=== PATIENT | female | born 1985 | race Caucasian/White ===

== ENCOUNTER 2021-08-04 04:19 | Emergency (ER) | payer OTHER ==
[~2021-08-04] VITALS: Ht 170.2 cm; Wt 104.0 kg
[2021-08-04] MEDS ORDERED: KETOROLAC 15 MG/ML VIAL. IVP ONE (05:45)
[2021-08-04] MEDS ORDERED: diphenhydrAMINE 50 MG/ML VIAL IVP ONE (05:45)
[2021-08-04] MEDS ORDERED: METOCLOPRAMIDE HCL 10 MG/2 ML VIAL. IVP ONE (05:45)
[2021-08-04] MEDS ORDERED: IV NORMAL SALINE 1,000ML 1,000 ML IV ONE (05:45)
[2021-08-04] MEDS ORDERED: DEXAMETHASONE SOD PHOS 10 MG/ML VIAL. IVP ONE (05:45)
--- NOTE | 2021-08-04 06:09 | PHYS DOC ---
Past History Past Medical History: Diabetes Additional Past Medical Histor: COVID 07/28/21 Past Surgical History: Appendectomy Smoking: Non-smoker Alcohol Use: None Drug Use: None General Adult EDM: Chief Complaint: HEADACHE HPI: HPI: 35-year-old female presents with report of headache that is been ongoing for the past 2 days. Patient also reports some right-sided neck pain. Patient does report history of 6 days ago. Patient was induced secondary to elevated blood pressure. Patient also recently diagnosed with COVID-19 on 07/05. Denies trauma. Denies fever or chills. Review of Systems: Review of Systems: Constitutional: Denies fever or chills Eyes: Denies redness or eye pain HENT: Denies nasal congestion or sore throat Respiratory: Denies cough or shortness of breath Cardiovascular: Denies chest pain or palpitations GI: Denies abdominal pain, nausea, or vomiting : Denies dysuria or hematuria Musculoskeletal: Denies back pain; reports right-sided neck pain Integument: Denies rash or skin lesions Neurologic: Reports headache; focal weakness or sensory changes Complete systems were reviewed and found to be within normal limits, except as documented in this note. Current Medications: Current Meds: Current Medications Medications (Trade) Dose Ordered Sig/Jude Start Time Stop Time Status Last Admin Dose Admin Dexamethasone Sodium Phosphate (Decadron) 10 mg 1X ONCE 08/04/21 05:45 08/04/21 05:46 UNV 08/04/21 05:48 10 MG Diphenhydramine HCl (Benadryl) 25 mg 1X ONCE 08/04/21 05:45 08/04/21 05:46 UNV 08/04/21 05:47 25 MG Ketorolac Tromethamine (Toradol 15mg Vial) 15 mg 1X ONCE 08/04/21 05:45 08/04/21 05:46 UNV 08/04/21 05:49 15 MG Metoclopramide HCl (Reglan Vial) 10 mg 1X ONCE 08/04/21 05:45 08/04/21 05:46 UNV 08/04/21 05:49 10 MG Sodium Chloride 1,000 ml @ 1,000 mls/hr 1X ONCE 08/04/21 05:45 08/04/21 06:44 UNV 08/04/21 05:47 1,000 MLS/HR Physical Exam: PE: Constitutional: Well developed, well nourished, uncomfortable, non-toxic appearance HENT: Normocephalic, atraumatic Eyes: Conjunctiva normal, no discharge, photophobia Neck: Normal range of motion, no midline tenderness, right paraspinal tenderness noted, supple Lungs & Thorax: No respiratory distress, equal chest rise and fall Abdomen: Soft, no tenderness Skin: Warm, dry, no erythema, no rash Extremities: No tenderness, ROM intact, no edema Neurologic: Alert and oriented X 3, no focal deficits noted Psychologic: Affect normal, judgment normal Current Patient Data: Vital Signs: Vital Signs Date Time Temp Pulse Resp B/P (MAP) Pulse Ox O2 Delivery O2 Flow Rate FiO2 08/04/21 05:43 69 22 190/97 (128) 98 Room Air 08/04/21 04:38 98.5 EKG: EKG: [] Radiology/Procedures: Radiology/Procedures: [] Heart Score: C/O Chest Pain: N/A Course & Med Decision Making: Course & Med Decision Making Patient presents with report of headache and right-sided neck discomfort x2 days. No history of trauma. History of COVID-19 diagnosis 07/28/2021. Patient also delivering 6 days ago. Patient is afebrile. No meningeal signs noted. Symptomatic treatment provided with headache cocktail with interval improvement. Prescriptions for continued headache medication as well as muscle relaxer provided for symptomatic treatment. Patient stable for discharge with outpatient follow-up with PCP/neurologist. Neurology referral provided. Discussed findings and plan with patient, who acknowledges understanding and agreement. Hussain Disclaimer: Hussain Disclaimer: This electronic medical record was generated, in whole or in part, using a voice recognition dictation system. Departure Departure: Impression: Primary Impression: Headache Qualified Codes: R51.9 - Headache, unspecified Additional Impression: Neck pain Disposition: HOME / SELF CARE / HOMELESS Condition: STABLE Referrals: SUSHMA AL MD (PCP) JENNY WU MD Patient Instructions: Headache, FAQs, Muscle Strain, [id number] Additional Instructions: Ice area of discomfort 20 minutes on and leave off next 20 minutes. Use [id number] ibuprofen or naproxen in addition to prescribed medications. Scripts Orphenadrine Citrate (ORPHENADRINE CITRATE) 100 Mg Tablet.er 1 TAB PO BID PRN for MUSCLE PAIN, #14 TAB 0 Refills Prov: DIMPLE PAPPAS DO 08/04/21 Butalb/Acetaminophen/Caffeine ([id number] [id number]) 1 Each Tablet 1 EACH PO Q6HRS PRN for HEADACHE, #14 TAB Prov: DIMPLE PAPPAS DO 08/04/21 DIMPLE PAPPAS DO Aug 04, 2021 06:09
[2021-08-04] MEDS ORDERED: BUTA1TAB23 PO (06:17)
[2021-08-04] MEDS ORDERED: ORPH-16 PO (06:17)
[2021-08-04] MEDS ORDERED: ORPHENADRINE CITRATE 60 MG/2 ML VIAL. IV ONE (07:00)
[2021-08-04] MEDS ORDERED: hydrALAZINE 20 MG/ML VIAL. IV ONE (08:00)
[2021-08-04 09:19] LABS: COLOR,URINE STRAW
[2021-08-04 09:20] LABS: BACTERIA,URINE 0 /HPF (0-FEW); BILIRUBIN,URINE NEG (NEG); CLARITY,URINE CLEAR; GLUCOSE,URINE NEG (NEG); NITRITE,URINE NEG (NEG); RBC,URINE OCC /HPF (0-2); SQUAMOUS EPITHELIAL CELL,UR FEW /LPF; UROBILINOGEN,URINE 0.2 mg/dL (0.2 mg/dL)
[2021-08-04 09:30] VITALS: BP 138/86
== END 2021-08-04 09:45 | disposition home or self-care (01) ==
LOC: ER 04:19
DX: O90.89 Other complications of the puerperium, not elsewhere classified (principal); R51.9 Headache, unspecified; M54.2 Cervicalgia; E11.9 Type 2 diabetes mellitus without complications
CPT/HCPCS: 81001; 87086; 96361; 96374; 96375; 99285; J0360; J1100; J1200; J1885; J2360; J2765; J7030